=== PATIENT | female | born 1940 | race Caucasian/White ===

== ENCOUNTER 2023-05-06 00:45 | Day surgery (SDC) | payer MEDICARE, SELFPAY ==
[2023-03-16 14:15] VITALS: BMI 29.3
--- NOTE | 2023-05-04 10:33 | SUR.PREOP ---
Patient called regarding upcoming procedure. Voicemail left regarding appointment times.
[2023-05-06 10:33] VITALS: BP 152/86; PULSE 78; RESP 20; TEMP 36.2; O2SAT 98
[2023-05-06] MEDS: LACTATED RINGERS 1,000 ML 150 ML IV CONT (10:44)
--- NOTE | 2023-05-06 11:07 | P.PNAN_ITS ---
Anes - Initial Pre Proc Eval Procedure: Operation Date: 05/06/23 13:00 Proposed Procedures p Colonoscopy - Dwaine Condon MD Date/Time: 05/06/23 11:07 Surgeon: Dwaine Condon MD Pre Op Diagnosis: hx of colon polyps Patient Data Age: 83 Gender: F Height: 1.52 m Weight: 65.5 kg Last Vital Signs Temp 97.1 F L 05/06/23 10:33 Pulse 78 05/06/23 10:33 Resp 20 05/06/23 10:33 BP 152/86 H 05/06/23 10:33 Pulse Ox 98 05/06/23 10:33 O2 Del Method Room Air 05/06/23 10:33 Allergies Allergy/AdvReac Type Severity Reaction Status Date / Time No Known Allergies Allergy Verified 05/06/23 10:33 Home Medications Medication Instructions Recorded Confirmed Type Vitamin D3 1 cap PO DAILY 03/16/23 04/27/23 History amlodipine 10 mg tablet 10 mg PO DAILY 03/16/23 04/27/23 History atorvastatin 10 mg tablet 10 mg PO DAILY 03/16/23 04/27/23 History calcium 1 cap BYMOUTH DAILY 03/16/23 04/27/23 History levothyroxine 75 mcg tablet 75 mcg PO USEASDIRECTD 03/16/23 04/27/23 History levothyroxine 88 mcg tablet 88 mcg PO DIRECTED 03/16/23 04/27/23 History losartan 100 mg tablet 100 mg PO DAILY 03/16/23 04/27/23 History omega-3 fatty acids 1 cap PO DAILY 03/16/23 04/27/23 History ursodiol 300 mg capsule 600 mg PO BID 03/16/23 04/27/23 History vitamin E (dl, acetate) 1 cap PO DAILY 03/16/23 04/27/23 History Patient hx anesthesia problems: none Family hx anesthesia problems: none Results Review: All pre-operative results and documents have been reviewed as part of the pre-op erative evaluation. [facility] Social History Social History Years smoked: 10 Smoking status: Former smoker Tobacco type: cigarettes Alcohol intake: current Substance use: never Substance use type: does not use Living arrangements: alone Spiritual care concerns: No Anes - Eval Final PreProcedure Day of Procedure 05/06/23 11:07 Patient weight: obese Heart: regular rate and rhythm Lungs: clear to auscultation Airway: Mallampati scale class II Neurological: alert and oriented Last oral intake: >/= 8 hours ASA classification: III Emergent: no Anesthetic plan: proceed Anesthesia type and monitoring: general GIVS and standard monitoring Results Review: All pre-operative results and documents have been reviewed as part of the pre- operative evaluation. Informed Consent: The patient's anesthetic plan and its attendant risks and benefits were discussed with the patient/family/POA. Questions were solicited and answers provided to the satisfaction of the patient/family/POA.
--- NOTE | 2023-05-06 11:22 | PM.HPGS ---
History of Present Illness History of Present Illness Consent: Risks, benefits, and alternatives have been discussed and questions answered. Patient agrees to proceed with procedure. Chief complaint: hx of colon polyps Narrative: Shama Owens is a 83 year old female with colon polyp in 2019 Review of Systems Review of Systems: All systems reviewed & are unremarkable except as noted in HPI and below PMFSH Past Medical History Medical History (Updated 05/06/23 @ 11:24 by Dwaine Condon MD) Adenomatous colon polyp Social History Social History Years smoked: 10 Smoking status: Former smoker Tobacco type: cigarettes Alcohol intake: current Substance use: never Substance use type: does not use Living arrangements: alone Spiritual care concerns: No Meds Home Medications and Allergies Home Medications Medication Instructions Recorded Confirmed Type Vitamin D3 1 cap PO DAILY 03/16/23 04/27/23 History amlodipine 10 mg tablet 10 mg PO DAILY 03/16/23 04/27/23 History atorvastatin 10 mg tablet 10 mg PO DAILY 03/16/23 04/27/23 History calcium 1 cap BYMOUTH DAILY 03/16/23 04/27/23 History levothyroxine 75 mcg tablet 75 mcg PO USEASDIRECTD 03/16/23 04/27/23 History levothyroxine 88 mcg tablet 88 mcg PO DIRECTED 03/16/23 04/27/23 History losartan 100 mg tablet 100 mg PO DAILY 03/16/23 04/27/23 History omega-3 fatty acids 1 cap PO DAILY 03/16/23 04/27/23 History ursodiol 300 mg capsule 600 mg PO BID 03/16/23 04/27/23 History vitamin E (dl, acetate) 1 cap PO DAILY 03/16/23 04/27/23 History Allergies Allergy/AdvReac Type Severity Reaction Status Date / Time No Known Allergies Allergy Verified 05/06/23 10:33 Vital Signs Vital Signs - 24 hr 05/06/23 10:33 Temperature 97.1 F L Pulse Rate 78 Respiratory Rate 20 Blood Pressure 152/86 H Pulse Oximetry 98 Oxygen Delivery Room Air Exam Const: General: comfortable and no acute distress HENMT: Face/Nose/Sinus: Normal nares present Eyes: General: appearance normal, both eyes and all related structures Neck: Neck: no JVD Resp: Auscultation: clear to auscultation bilaterally Cardio: Rate: regular rate Rhythm: regular rhythm GI: Inspection: non-distended GI Palp: Yes Soft to palpation Skin: General skin exam: normal color Neuro: General: gait normal Speech: normal speech Extrem: General: normal to inspection Psych: Mental Status: mental status grossly normal Assessment and Plan Assessment and plan (1) Adenomatous colon polyp: Code(s): D12.6 - Benign neoplasm of colon, unspecified Status: Acute Assessment and Plan: colonoscopy
[2023-05-06 11:44] VITALS: BP 120/85; PULSE 68; RESP 22; O2SAT 100
[2023-05-06 11:54] VITALS: BP 120/74; PULSE 62; RESP 22; O2SAT 100
[2023-05-06 12:04] VITALS: BP 143/62; PULSE 54; RESP 18; O2SAT 100
== END 2023-05-06 12:17 | disposition home or self-care (01) ==
PROVIDERS: PCP Family Medicine; Visit Provider Internal Medicine Gastroenterology
PROC: 0DJD8ZZ Inspection of Lower Intestinal Tract, Via Natural or Artificial Opening Endoscopic (ICD-10-PCS; CPT 45378; principal; 2023-05-06 13:00)
DX: Z12.11 Encounter for screening for malignant neoplasm of colon (principal); K57.30 Diverticulosis of large intestine without perforation or abscess without bleeding; K64.8 Other hemorrhoids; K64.4 Residual hemorrhoidal skin tags; Z87.891 Personal history of nicotine dependence; E66.9 Obesity, unspecified; Z68.28 Body mass index [BMI] 28.0-28.9, adult
CPT/HCPCS: G0105; J2001; J2704; J7120